=== PATIENT | female | born 1990 ===

== ENCOUNTER 2018-10-19 13:45 | Observation (INO) | payer MEDICAID ==
[2018-10-19] MEDS ORDERED: PREN1TAB45 PO (14:36)
[2018-10-19] MEDS ORDERED: MULTTAB61 PO (14:37)
== END 2018-10-19 15:16 | disposition home or self-care (01) | DRG 566 ==
LOC: LDRP 13:45
PROVIDERS: ADMIT Obstetrics & Gynecology; ATTEND Obstetrics & Gynecology
DX: O36.8120 Decreased fetal movements, second trimester, not applicable or unspecified (principal); Z3A.24 24 weeks gestation of pregnancy
CPT/HCPCS: 59025; 81002; G0378